=== PATIENT | female | born 2000 | race Caucasian/White ===

== ENCOUNTER 2022-04-11 11:00 | Emergency (ER) | payer MEDICAID, OTHER ==
[2022-04-11] MEDS ORDERED: Ondansetron 4 MG/2 ML SDV IVPUSH ONE (11:35)
[2022-04-11] MEDS ORDERED: Morphine 4 MG/ML VIAL IVPUSH ONE (11:35)
[2022-04-11] MEDS ORDERED: Sodium Chloride 0.9% 1,000 ML IV ONE (11:35)
[2022-04-11 12:13] LABS: BLOOD UREA NITROGEN,BUN 14 mg/dL (7.0-18.0); CARBON DIOXIDE,CO2 27.1 mmol/L (21.0-32.0); CHLORIDE,CL 104 mmol/L (98-107); GLUCOSE RANDOM 87 mg/dL (74-106); LIPASE 80 U/L (73-393); SODIUM,NA 137 mmol/L (136-145)
[2022-04-11 12:17] LABS: ESTIMATED GFR > 60.0 ml/min
[2022-04-11] MEDS ORDERED: Iopamidol 755 MG/ML 500 ML Multipack Bottle IVPUSH STA (13:28)
== END 2022-04-11 14:38 | disposition home or self-care (01) ==
LOC: MW.ED 11:00
DX: N83.201 Unspecified ovarian cyst, right side (principal); K59.00 Constipation, unspecified; H60.501 Unspecified acute noninfective otitis externa, right ear; H66.91 Otitis media, unspecified, right ear; Z79.899 Other long term (current) drug therapy
CPT/HCPCS: 36415; 74177; 80053; 81003; 83690; 84703; 85025; 96374; 96375; 99284; J2270; J2405; J7030; Q9967

== ENCOUNTER 2022-05-28 16:41 | Emergency (ER) | payer OTHER | END 2022-05-28 18:29 | disposition home or self-care (01) | LOC: MW.ED 16:41 | DX: U07.1 COVID-19 (principal); Z91.048 Other nonmedicinal substance allergy status; Z79.899 Other long term (current) drug therapy; Z86.16 Personal history of COVID-19 | CPT/HCPCS: 93005; 93010; 99283; 99285; U0002 ==

== ENCOUNTER 2023-01-09 16:40 | Emergency (ER) | payer OTHER | END 2023-01-09 21:10 | disposition home or self-care (01) | LOC: MW.ED 16:40 | DX: S19.9XXA Unspecified injury of neck, initial encounter (principal); J45.909 Unspecified asthma, uncomplicated; Z86.16 Personal history of COVID-19; Z91.048 Other nonmedicinal substance allergy status; Z79.899 Other long term (current) drug therapy; W17.89XA Other fall from one level to another, initial encounter; Y92.89 Other specified places as the place of occurrence of the external cause; Y99.0 Civilian activity done for income or pay | CPT/HCPCS: 72040; 72040-26; 99283; 99284 ==